=== PATIENT | male | born 1935 | race African-American/Black ===

== ENCOUNTER 2016-12-15 16:38 | Emergency (ER) | payer OTHER ==
[~2016-12-15] VITALS: Ht 172.7 cm; Wt 82.7 kg
[2016-12-15 16:39] VITALS: TEMP 36.8; Ht 172.7 cm; Wt 82.7 kg
[2016-12-15] MEDS ORDERED: DTR/5 PO (17:30)
[2016-12-15] MEDS ORDERED: MECL1TAB42 PO (17:30)
[2016-12-15] MEDS ORDERED: FURO-85 PO (17:30)
[2016-12-15] MEDS ORDERED: FLUD0.1T10 PO (17:30)
[2016-12-15] MEDS ORDERED: FUROSEMIDE 20 MG TAB PO ONE (19:15)
[2016-12-15 19:18] LABS: BASO % 0.1 %; BASO ABS # 0.01 K/uL (0-0.2); COMPLETE YES; EOS % 1.1 %; HEMATOCRIT 41.7 % (42-52); IG% 0.3 %; LYMPH ABS # 2.42 K/uL (1.2-3.4); MEAN CELL VOLUME 86.5 fL (80-100); MEAN CORPUSCULAR HEMOGLOBIN 29.9 pg (25-34); MEAN CORPUSCULAR HGB CONC 34.5 g/dl (32-36); MEAN PLATELET VOLUME 9.9 fL (7.4-10.4); MONO % 10.7 %; NEUT % 53.8 %; PLATELET COUNT 222 K/uL (130-400); RED BLOOD COUNT 4.82 M/uL (4.7-6.1); WHITE BLOOD COUNT 7.11 K/uL (4.8-10.8)
[2016-12-15] MEDS ORDERED: FUROSEMIDE 40 MG TAB ONE (19:24)
[2016-12-15 19:33] LABS: BUN/CREATININE RATIO 9.2 (10-20); CALCIUM 8.8 mg/dl (8.5-10.1); CREATININE 1.8 mg/dl (0.60-1.40); POTASSIUM 4.2 mmol/L (3.5-5.1)
--- NOTE | 2016-12-15 19:54 | EMERGENCY ROOM VISIT NOTE ---
ED Visit Note First contact with patient: 16:47 Resident Physician Supervision Note: I interviewed and examined the patient. Discussed with Dr. Ayon and agree with findings and plan as documented in the note. Any exceptions or clarifications are listed here: [None] Medication Reconciliation: I attest that I have personally reviewed the patient' s current medication list. Blood Pressure Screening: Patient was found to have an elevated blood pressure and was referred to their primary doctor for recheck and further treatment. IMPRESSION: Cellulitis Documented By: Hung Conde
[2016-12-15] MEDS ORDERED: LISI-729 PO (20:11)
[2016-12-15] MEDS ORDERED: CEPH500C2 PO (20:11)
[2016-12-15] MEDS ORDERED: SULF800T23 PO (20:11)
[2016-12-15] MEDS ORDERED: LISINOPRIL 5 MG TAB PO ONE (20:15)
[2016-12-15] MEDS ORDERED: CEPHALEXIN 500MG HOME PACK 1 EA BTL PO ONE (20:15)
[2016-12-15] MEDS ORDERED: SEPTRA DS HOME PACK 1 EA VIAL PO ONE (20:15)
[2016-12-15] MEDS ORDERED: OXYB5TAB PO (20:31)
--- NOTE | 2016-12-15 20:31 | EMERGENCY ROOM VISIT NOTE ---
History First contact with patient: 16:47 Chief Complaint: SWELLING TO EXTREMITY Stated Complaint: SWOLLEN RT FOOT History of Present Illness The patient is a 80 year old male with a past medical history of diabetes and hypertension who presents to the Emergency Room with complaints of left foot pain and swelling. The patient has had right foot swelling for the last week that now has become painful when he walks on it. The patient states that the pain comes and goes and is an 8/10 at its worst, but currently is not painful. The patient states that the pain is over the top of his foot. He denies any recent fevers or chills. Granddaughter states the patient has a history of renal insufficiency as well. Patient denies any confusion, lightheadedness, or dizziness. Review of Systems See HPI for pertinent positives and negatives. A total of ten systems were reviewed and were otherwise negative. Social History Smoking Status: Never Smoker Current/Historical Medications Scheduled Cephalexin Monohydrate (Keflex), 500 MG PO QID Fludrocortisone Acetate (Florinef), 0.1 MG PO DAILY Furosemide (Lasix), 20 MG PO DAILY Lisinopril (Zestril), 5 MG PO DAILY Oxybutynin Chloride (Ditropan), 5 MG PO BID Sulfa/Trimethoprim (Bactrim Ds 800MG/160MG), 1 TAB PO BID Scheduled PRN Meclizine Hcl (Meclizine Hcl), 12.5 MG PO BID PRN for Dizziness or Vertigo Allergies Coded Allergies: Aspirin (Verified Allergy, Unknown, UNKNOWN, 12/05/11) Physical Exam Vital Signs Date Time Temp Pulse Resp B/P Pulse Ox O2 Delivery O2 Flow Rate FiO2 12/15/16 18:57 96 20 186/108 98 Room Air 12/15/16 16:39 36.8 99 18 143/92 97 Room Air Physical Exam GENERAL: Awake, alert, well-appearing, in no distress HENT: Normocephalic, atraumatic. EYES: Normal conjunctiva. Sclera non-icteric. RESPIRATORY: Clear to auscultation. CARDIAC: Regular rate, normal rhythm. Extremities warm and well perfused. Pulses equal. ABDOMEN: Soft, non-distended. No tenderness to palpation. No rebound or guarding. No masses. MUSCULOSKELETAL: Chest examination reveals no tenderness LOWER EXTREMITIES: Calves are equal size bilaterally and non-tender. Right foot is erythematous and warm to touch over the dorsal surface. No visible ulcerations or cracks over the foot. Right foot is swollen with 1+ pitting over the dorsal aspect. Dorsalis pedis and posterior tibial pulses 1+. NEURO: Normal sensorium. No sensory or motor deficits noted. SKIN: No rash or jaundice noted. Erythema mentioned above. Medical Decision & Procedures Laboratory Results 12/15/16 19:09 Red Blood Count 4.82, Mean Corpuscular Volume 86.5, Mean Corpuscular Hemoglobin 29.9, Mean Corpuscular Hemoglobin Concent 34.5, Mean Platelet Volume 9.9, Neutrophils (%) (Auto) 53.8, Lymphocytes (%) (Auto) 34.0, Monocytes (%) (Auto) 10.7, Eosinophils (%) (Auto) 1.1, Basophils (%) (Auto) 0.1, Neutrophils # (Auto ) 3.82, Lymphocytes # (Auto) 2.42, Monocytes # (Auto) 0.76, Eosinophils # (Auto ) 0.08, Basophils # (Auto) 0.01 12/15/16 19:09 Test 12/15/16 19:09 White Blood Count 7.11 K/uL (4.8-10.8) Red Blood Count 4.82 M/uL (4.7-6.1) Hemoglobin 14.4 g/dL (14.0-18.0) Hematocrit 41.7 % (42-52) Mean Corpuscular Volume 86.5 fL (80-100) Mean Corpuscular Hemoglobin 29.9 pg (25-34) Mean Corpuscular Hemoglobin Concent 34.5 g/dl (32-36) Platelet Count 222 K/uL (130-400) Mean Platelet Volume 9.9 fL (7.4-10.4) Neutrophils (%) (Auto) 53.8 % Lymphocytes (%) (Auto) 34.0 % Monocytes (%) (Auto) 10.7 % Eosinophils (%) (Auto) 1.1 % Basophils (%) (Auto) 0.1 % Neutrophils # (Auto) 3.82 K/uL (1.4-6.5) Lymphocytes # (Auto) 2.42 K/uL (1.2-3.4) Monocytes # (Auto) 0.76 K/uL (0.11-0.59) Eosinophils # (Auto) 0.08 K/uL (0-0.5) Basophils # (Auto) 0.01 K/uL (0-0.2) RDW Standard Deviation 41.0 fL (36.4-46.3) RDW Coefficient of Variation 12.9 % (11.5-14.5) Immature Granulocyte % (Auto) 0.3 % Immature Granulocyte # (Auto) 0.02 K/uL (0.00-0.02) Anion Gap 7.0 mmol/L (3-11) Est Creatinine Clear Calc Drug Dose 34.9 ml/min Estimated GFR () 40.6 Estimated GFR (Non- 35.0 BUN/Creatinine Ratio 9.2 (10-20) Calcium Level 8.8 mg/dl (8.5-10.1) Medications Administered Medications (Trade) Dose Ordered Sig/Mckenzie Route Start Time Stop Time Status Last Admin Dose Admin Furosemide (Lasix Tab) 20 mg NOW ONCE PO 12/15/16 19:15 12/15/16 19:16 DC 12/15/16 19:15 20 MG Medical Decision Patient is a 80 year old male with a 1 week history of right foot swelling and pain - Right foot appears to be erythematous and warm over the dorsal surface - Ordered CBC and BMP for further evaluation due to history of diabetes, renal insufficiency, and also ongoing infection - Lab work showed a Cr of 1.8 but otherwise remaining labs wnl, patient has history of renal insufficiency - Patient blood pressure remains elevated at 180/110, so will start patient on 2.5mg Lisinopril and follow up on Friday - For the cellulitis the patient will be started on a 10 day course of Keflex and Bactrim DS Impression Primary Impression: Cellulitis of right foot Additional Impression: Hypertension associated with diabetes Departure Information Dispostion Home / Self-Care Condition GOOD Prescriptions Oxybutynin Chloride (OXYBUTYNIN CHLORIDE ER) 5 Mg Tab 1 TAB PO BID for 30 Days, #60 TAB 5 Refills Prov: Papito Ayon MD 12/15/16 Lisinopril (Zestril) 5 Mg Tab 5 MG PO DAILY for 7 Days, #7 TAB Prov: Papito Ayon MD 12/15/16 Sulfa/Trimethoprim (Bactrim Ds 800MG/160MG) Tab 1 TAB PO BID for 10 Days, #6 TAB Prov: Papito Ayon MD 12/15/16 Cephalexin Monohydrate (KEFLEX) 500 Mg Cap 500 MG PO QID for 10 Days, #40 CAP Prov: Papito Ayon MD 12/15/16 Referrals No Doctor, Assigned (PCP) Patient Instructions Cellulitis - [facility], Replaced By [facility] Problem Qualifiers
[2016-12-15 20:56] VITALS: BP 185/101; PULSE 81; O2SAT 97
== END 2016-12-15 20:57 | disposition home or self-care (01) ==
LOC: C.EDB 16:38 → C.EDA 20:57
DX: L03.115 Cellulitis of right lower limb (principal); I10 Essential (primary) hypertension; E11.9 Type 2 diabetes mellitus without complications; Z79.899 Other long term (current) drug therapy